=== PATIENT | male | born 1945 | race Caucasian/White ===

== ENCOUNTER 2017-12-04 06:08 | Day surgery (SDC) | payer OTHER, SELFPAY ==
--- NOTE | 2017-12-03 11:09 | POEE_ITS ---
History of Present Illness Chief Complaint: Progressive decreased vision, left eye Narrative: The patient is a 72 year old gentleman who previously underwent cataract surgery in the right eye in 2013. He notes progressive decreased vision at distance near and intermediate in the left eye. He feels like he is looking through wax paper. He notes significant difficulty with glare from headlights at night. On examination he was noted to have moderate nuclear cortical and posterior subcapsular cataract of the left eye with a poorly dilating pupil. Visual acuity measured 20/100 in the left eye with significant glare disability. The option of cataract surgery was offered to the patient and he wished to proceed. NOTE: The Chief Complaint, HPI, Past Medical History, Past Surgical History, Family History, Social History, Medications, and complete Ophthalmic Exam with detailed Assessment and Plan have already been documented in the patient's outpatient ophthalmic record and/or in the Primary Care Provider's pre-op history and physical, and are not covered again in detail here. PFS Social History Smoking/Tobacco Use Status: Former Tobacco Use Meds Home Medications Medication Instructions Recorded Confirmed Type ibuprofen [Advil] 800 mg PO PRN PRN 11/29/17 11/29/17 History Allergies Allergy/AdvReac Type Severity Reaction Status Date / Time No Known Allergies Allergy Unverified 07/03/12 09:41 Exam OCULAR EXAM:: Visual acuity at distance: Corrected visual acuity 20/20 right eye , 20/100 left eye Pupils: Pupils equal, round, and reactive without afferent pupillary defect IOP: 12 OD 12 OS Extraocular Motility: Normal Pertinent Slit Lamp Findings: Significant for pupils dilating only to 4 mm. There is a well-positioned PCIOL in the right eye with clear posterior capsule. In the left eye there is a 2+ nuclear, 2+ cortical, and 2+ posterior subcapsular cataract. Dilated Funduscopic Examination: Disc cupping is 0.3 OU with normal color. The optic nerves have good perfusion and normal color. The retinal vasculature is normal without significant tortuosity or abnormality. The maculas are normal in appearance with normal contour and foveal reflex appropriate for age, except the right eye shows some evidence of epiretinal membrane, the peripheral retina and vitreous are normal. BRIGHTNESS ACUITY TESTING (BAT):: Off left eye 20/100 Low: 20/100 Medium: 20/200 High: Less than 20/400 Assessment and Plan (1) Cortical cataract of left eye: Current visit: No Status: Acute Assessment: Visually significant cataract, left eye. 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 Plan: Cataract extraction with intraocular lens implantation, left eye (3) Nuclear sclerotic cataract of left eye: Current visit: No Status: Acute Assessment: Visually significant cataract, left eye. 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 Plan is to use pupillary expansion devices intraoperatively. Note: NOTE:: The details of the planned surgery, including the risks, indications, limitations,expectations,outcome and possible complications were explained to the patient. The patient understands the complications including, but not limited to: infection, hemorrhage, posterior dislocation of the lens or nuclear fragments which may require the intervention of a vitreoretinal surgeon, possible loss of the eye, or from anesthetic complications. The patient has been made aware of the option of not having surgery, that vision following surgery may not be equal to that prior to surgery, and that the planned surgery may not achieve the intended results. Following this discussion, which the patient appeared to understand, the patient wishes to proceed with cataract surgery with lens implantation of the affected eye to improve and maximize vision.
[2017-12-04 06:23] VITALS: BP 162/88; PULSE 71; RESP 16; TEMP 35.9; O2SAT 96
[2017-12-04] MEDS: Lidocaine 2% Jelly 6 ML SYR (08:23)
[2017-12-04] MEDS: Balanced Salt Soln.-PLUS 500 ML BAG (08:29)
[2017-12-04] MEDS: Lidocaine 1% Pres-Free 5 ML VIAL (08:29)
[2017-12-04] MEDS: Trypan Blue 0.06% 0.5 ML SYR (08:29)
[2017-12-04] MEDS: Povidone-Iodine Ophth 30 ML BTL (08:38)
--- NOTE | 2017-12-04 08:59 | PDOC.DSDIS_ITS ---
Discharge Plan Discharge Details Reason For Visit: CATARACT OS Attending Provider: Leeroy Zendejas Primary Care Provider: Sabino Shaikh [place] Meds and New Rx's Prescriptions: No Action ibuprofen [Advil] 200 mg Tablet 800 mg PO PRN PRNRF: 0 Discharge Instructions Stand Alone Forms: Post-op Topical Cataract, Mana Gutierrez (DSU) DS: Diagnosis Discharge Diagnosis (1) Cortical cataract of left eye: Status: Resolved (2) Posterior subcapsular age-related cataract of left eye: Status: Resolved (3) Nuclear sclerotic cataract of left eye: Status: Resolved (4) Pupillary miosis: Status: Resolved
--- NOTE | 2017-12-04 08:59 | W.PM.OP ---
Date of service: 12/04/17 Time of Service: 08:59 Operative Note Date of procedure: 12/04/17 Pre-op diagnosis: Cataract, left eye, with poor red reflex Post-op diagnosis: same Procedure: Cataract extraction using phacoemulsification with intraocular lens implant, left eye, using capsular staining with Vision Blue Surgeon: Leeroy Zendejas Anesthesia: MAC (with local sub-tenon's anesthetic injection) Complications: None Patient was transported to: same day Patient's condition: stable Implants: [employer] Stanley / [employer] Tecnis [id number] Indications: Progressive decreased vision due to cataract, left eye, with poor red reflex Procedure Description: CATARACT SURGERY OPERATIVE REPORT PREOPERATIVE DIAGNOSIS: 1. Nuclear/cortical/Posterior subcapsular catarac, left eye 2. Poor red reflex secondary to #1 POSTOPERATIVE DIAGNOSIS: Same OPERATION: Cataract extraction using phacoemulsification with posterior chamber intraocular lens implant, leftt eye. Capsular staining with Vision Blue IOL: IOL Corporate Legal Secretary/Model: Stanley [employer] Stanley / ABHIJIT Tecnis [id number] IOL Power: +20.00 diopters IOL Serial Number: [id number] Optic Diameter: 6.0 mm Haptic/Overall Diameter: 13.0 mm PHACO INFO: Ollie [employer]ion Vision System with OZil and Active Fluidics Cumulative Dispersed Energy (CDE): 8.11 seconds SURGEON: Leeroy Zendejas MD, MELISA ANESTHESIA: Monitored Anesthesia Care (MAC), with local sub-tenon's anesthetic infiltration COMPLICATIONS: None SPECIMENS: None INDICATIONS FOR PROCEDURE: The patient is a 72-year-old gentleman who previously underwent cataract surgery in the right eye in 2012. He has now developed a significant nuclear cortical and posterior subcapsular cataract in the left eye with visual acuity of 20/100. The option of cataract surgery was offered to the patient and he wished to proceed. PROCEDURE: The correct surgical eye was identified and marked as the left eye and the pupil was dilated in the preoperative area using mydriatics, cycloplegics, and NSAIDS (except in aspirin allergic patients). The dilated pupil size was 6.0mm. Oral sedation was administered in the form of an Imprimis MKO Melt (midazolam 3mg/ketamine 25mg/ondansetron 2mg). The patient was brought to the operating room where cardiopulmonary monitoring was instituted and surgical time-out was performed, confirming the correct operative eye and IOL power. Topical anesthesia was administered and ophthalmic povidone-iodine 5% was instilled into the conjunctival fornices. Lidocaine gel was applied to the cornea and the giovanni-ocular area was prepped with Betadine 10% solution and draped in the usual sterile fashion for intraocular surgery. Steri-strips were used to cover the lashes and lid margins and an adhesive eye drape was placed. Care was taken to isolate the lashes and lid margins under the Steri-strips and adhesive eye drape. A lid speculum was placed between the lids of the operative eye and the Heide-Chele operating microscope was maneuvered into position. Jackie scissors were then used to make a conjunctival buttonhole approximately 6mm posterior to the limbus in the inferonasal quadrant. Blunt dissection was carried out to expose bare sclera, and a blunt-tipped sub-tenon?s anesthesia cannula was introduced and passed posteriorly along the globe where non-preserved plain lidocaine was injected into posterior sub-Tenon?s space. A sideport knife was used to make a paracentesis port at the 12:00 position. Air was injected into the anterior chamber, followed by Vision Blue, which was painted over the anterior capsule and then irrigated out using BSS. The anterior chamber was filled with Healon GV. A 2.4mm keratome knife was used to create a half-thickness groove at the limbus and then to construct a three-plane near-clear corneal tunnel extending 2.0mm into clear cornea at the 3:00 position. A flap was raised on the anterior capsule and capsulorhexis forceps were used to complete a continuous curvilinear capsulorhexis of 5.0mm. Balanced salt solution was then used to perform cortical cleaving hydrodissection and nuclear hydrodelineation until the lens could be freely rotated within the capsular bag. The lens nucleus was then disassembled and removed within the capsular bag and iris plane using phacoemulsification. Residual cortical material was removed using the 45-degree angled silicone I/A tip with 0.3mm port. The posterior capsule was carefully polished to remove as much residual lens epithelial cells as safely possible. There was some residual posterior capsular plaque that could not be safely removed in the inferior visual axis. The capsular bag was then inflated and the anterior chamber deepened with viscoelastic. The lens implant described above was inserted into the capsular bag using the ABHIJIT [place] Injector. A Kuglen hook was used to dial the IOL into position. Residual viscoelastic was then removed first from posterior to the IOL, then from the anterior chamber using the I/A handpiece. The lens implant was noted to center nicely within the capsular bag. The incisions were stromally hydrated, and the anterior chamber was reformed using BSS. Then 0.4cc of moxifloxacin 1.5mg/ml were injected into the capsular bag and anterior chamber. The incisions were checked with a Weck spear and found to be secure. Several drops of ophthalmic povidone-iodine 5% were then applied to the eye followed by two drops of Imprimis combination moxifloxacin/dexamethasone solution. The drapes were removed and a clear plastic protective eye shield was placed over the eye. The patient was then returned to Same Day Surgery in stable condition.
--- NOTE | 2017-12-04 09:02 | ROE_ITS ---
Date of service: 12/04/17 Time of Service: 08:59 Operative Note Date of procedure: 12/04/17 Pre-op diagnosis: Cataract, left eye, with poor red reflex Post-op diagnosis: same Procedure: Cataract extraction using phacoemulsification with intraocular lens implant, left eye, using capsular staining with Vision Blue Surgeon: Leeroy Zendejas Anesthesia: MAC (with local sub-tenon's anesthetic injection) Complications: None Patient was transported to: same day Patient's condition: stable Implants: [employer] Stanley / [employer] Tecnis [id number] Indications: Progressive decreased vision due to cataract, left eye, with poor red reflex Procedure Description: CATARACT SURGERY OPERATIVE REPORT PREOPERATIVE DIAGNOSIS: 1. Nuclear/cortical/Posterior subcapsular catarac, left eye 2. Poor red reflex secondary to #1 POSTOPERATIVE DIAGNOSIS: Same OPERATION: Cataract extraction using phacoemulsification with posterior chamber intraocular lens implant, leftt eye. Capsular staining with Vision Blue IOL: IOL Doll Surgeon/Model: Stanley [employer] Stanley / ABHIJIT Tecnis [id number] IOL Power: +20.00 diopters IOL Serial Number: [id number] Optic Diameter: 6.0 mm Haptic/Overall Diameter: 13.0 mm PHACO INFO: Ollie [employer]ion Vision System with OZil and Active Fluidics Cumulative Dispersed Energy (CDE): 8.11 seconds SURGEON: Leeroy Zendejas MD, MELISA ANESTHESIA: Monitored Anesthesia Care (MAC), with local sub-tenon's anesthetic infiltration COMPLICATIONS: None SPECIMENS: None INDICATIONS FOR PROCEDURE: The patient is a 72-year-old gentleman who previously underwent cataract surgery in the right eye in 2012. He has now developed a significant nuclear cortical and posterior subcapsular cataract in the left eye with visual acuity of 20/100. The option of cataract surgery was offered to the patient and he wished to proceed. PROCEDURE: The correct surgical eye was identified and marked as the left eye and the pupil was dilated in the preoperative area using mydriatics, cycloplegics, and NSAIDS (except in aspirin allergic patients). The dilated pupil size was 6.0mm. Oral sedation was administered in the form of an Imprimis MKO Melt (midazolam 3mg/ketamine 25mg/ondansetron 2mg). The patient was brought to the operating room where cardiopulmonary monitoring was instituted and surgical time-out was performed, confirming the correct operative eye and IOL power. Topical anesthesia was administered and ophthalmic povidone-iodine 5% was instilled into the conjunctival fornices. Lidocaine gel was applied to the cornea and the giovanni-ocular area was prepped with Betadine 10% solution and draped in the usual sterile fashion for intraocular surgery. Steri-strips were used to cover the lashes and lid margins and an adhesive eye drape was placed. Care was taken to isolate the lashes and lid margins under the Steri-strips and adhesive eye drape. A lid speculum was placed between the lids of the operative eye and the Heide-Chele operating microscope was maneuvered into position. Jackie scissors were then used to make a conjunctival buttonhole approximately 6mm posterior to the limbus in the inferonasal quadrant. Blunt dissection was carried out to expose bare sclera, and a blunt-tipped sub-tenon? s anesthesia cannula was introduced and passed posteriorly along the globe where non-preserved plain lidocaine was injected into posterior sub-Tenon?s space. A sideport knife was used to make a paracentesis port at the 12:00 position. Air was injected into the anterior chamber, followed by Vision Blue, which was painted over the anterior capsule and then irrigated out using BSS. The anterior chamber was filled with Healon GV. A 2.4mm keratome knife was used to create a half-thickness groove at the limbus and then to construct a three-plane near-clear corneal tunnel extending 2.0mm into clear cornea at the 3 :00 position. A flap was raised on the anterior capsule and capsulorhexis forceps were used to complete a continuous curvilinear capsulorhexis of 5.0mm. Balanced salt solution was then used to perform cortical cleaving hydrodissection and nuclear hydrodelineation until the lens could be freely rotated within the capsular bag. The lens nucleus was then disassembled and removed within the capsular bag and iris plane using phacoemulsification. Residual cortical material was removed using the 45-degree angled silicone I/A tip with 0.3mm port. The posterior capsule was carefully polished to remove as much residual lens epithelial cells as safely possible. There was some residual posterior capsular plaque that could not be safely removed in the inferior visual axis. The capsular bag was then inflated and the anterior chamber deepened with viscoelastic. The lens implant described above was inserted into the capsular bag using the ABHIJIT [place] Injector. A Kuglen hook was used to dial the IOL into position. Residual viscoelastic was then removed first from posterior to the IOL, then from the anterior chamber using the I/A handpiece. The lens implant was noted to center nicely within the capsular bag. The incisions were stromally hydrated , and the anterior chamber was reformed using BSS. Then 0.4cc of moxifloxacin 1.5mg/ml were injected into the capsular bag and anterior chamber. The incisions were checked with a Weck spear and found to be secure. Several drops of ophthalmic povidone-iodine 5% were then applied to the eye followed by two drops of Imprimis combination moxifloxacin/dexamethasone solution. The drapes were removed and a clear plastic protective eye shield was placed over the eye. The patient was then returned to Same Day Surgery in stable condition.
[2017-12-04 09:19] VITALS: BP 129/75; PULSE 76; RESP 16; TEMP 36.5; O2SAT 92
== END 2017-12-04 09:32 | disposition home or self-care (01) ==
LOC: SUR 06:08
PROVIDERS: PCP Internal Medicine; Referring Provider Internal Medicine; Visit Provider Ophthalmology
PROC: (CPT 66982; principal; 2017-12-04 08:30)
DX: H25.12 Age-related nuclear cataract, left eye (principal); H25.012 Cortical age-related cataract, left eye; H25.042 Posterior subcapsular polar age-related cataract, left eye; H35.89 Other specified retinal disorders; Z98.41 Cataract extraction status, right eye; Z96.1 Presence of intraocular lens; K21.9 Gastro-esophageal reflux disease without esophagitis
CPT/HCPCS: 66982; V2632